=== PATIENT | male | born 2000 | race Caucasian/White ===

== ENCOUNTER 2021-04-20 23:24 | Emergency (ER) | payer OTHER ==
[~2021-04-20] VITALS: Ht 175.3 cm; Wt 84.0 kg
[2021-04-20 23:25] VITALS: BP 135/68
[2021-04-21] MEDS ORDERED: FLON27.5 NARES (01:41)
== END 2021-04-21 02:08 | disposition home or self-care (01) ==
LOC: M ED 23:24
DX: J35.1 Hypertrophy of tonsils (principal); T78.40XA Allergy, unspecified, initial encounter; J34.89 Other specified disorders of nose and nasal sinuses; J45.909 Unspecified asthma, uncomplicated; Z79.51 Long term (current) use of inhaled steroids; Z86.16 Personal history of COVID-19